=== PATIENT | female | born 1960 | race Caucasian/White ===

== ENCOUNTER 2017-05-08 12:10 | Emergency (ER) | payer OTHER ==
[2017-05-08 12:15] VITALS: BP 144/87
[2017-05-08] MEDS ORDERED: METH4TAB2 PO (12:50)
--- NOTE | 2017-05-08 12:50 | PHYS DOC ---
Past History Past Medical History: Fibromyalgia Past Surgical History: Tubal ligation, Other Additional Smoking Information: "vapes" Alcohol Use: Rarely Drug Use: None Adult General Chief Complaint Chief Complaint: SHOULDER INJURY HPI HPI 56-year-old right-handed female patient with history of partial right rotator cuff tear states she tried to throw a stick while working in her yard yesterday and felt a tear in her right shoulder since then unable to raise her shoulder. Patient states she has had limited range of abduction of the right shoulder but able to move partially her shoulder with help of other had. Patient denies focal neuro deficit and other injuries. Patient states she is allergic to all of pain medication except for Alive and doesn't want pain medication and only wants to know what is wrong with her shoulder. Review of Systems Review of Systems Constitutional: Denies fever or chills [] Eyes: Denies change in visual acuity, redness, or eye pain [] HENT: Denies nasal congestion or sore throat [] Respiratory: Denies cough or shortness of breath [] Cardiovascular: No additional information not addressed in HPI [] GI: Denies abdominal pain, nausea, vomiting, bloody stools or diarrhea [] : Denies dysuria or hematuria [] Musculoskeletal: Denies back pain, reports shoulder pain] Integument: Denies rash or skin lesions [] Neurologic: Denies headache, focal weakness or sensory changes [] Endocrine: Denies polyuria or polydipsia [] All other systems were reviewed and found to be within normal limits, except as documented in this note. Current Medications Current Medications Current Medications Medications (Trade) Dose Ordered Sig/[facility] Start Time Stop Time Status Last Admin Dose Admin Fentanyl Citrate (Fentanyl 2ml Vial) 50 mcg 1X ONCE 05/08/17 12:30 05/08/17 12:35 DC Allergies Allergies Allergies Coded Allergies Type Severity Reaction Last Updated Verified hydrocodone Allergy Intermediate HALLUCINATIONS 05/08/17 Yes Uncoded Allergies Type Severity Reaction Last Updated Verified all pain medications except aleve Allergy Unknown 05/08/17 Physical Exam Physical Exam Constitutional: Well developed, well nourished, mild distress, non-toxic appearance. [] HENT: Normocephalic, atraumatic, bilateral external ears normal, oropharynx moist, no oral exudates, nose normal. [] Eyes: PERRLA, EOMI, conjunctiva normal, no discharge. [] Neck: Normal range of motion, no tenderness, supple, no stridor. [] Cardiovascular:Heart rate regular rhythm, no murmur [] Lungs & Thorax: Bilateral breath sounds clear to auscultation []Abdomen: Bowel sounds normal, soft, no tenderness, no masses, no pulsatile masses. [] Skin: Warm, dry, no erythema, no rash. [] Back: No tenderness, no CVA tenderness. [] Extremities: Right shoulder reveals deformity, holding right shoulder in flexion position with limited abduction, no neurovascular deficit Neurologic: Alert and oriented X 3, normal motor function, normal sensory function, no focal deficits noted. [] Psychologic: Affect normal, judgement normal, mood normal. [] Current Patient Data Vital Signs Vital Signs Date Time Temp Pulse Resp B/P (MAP) Pulse Ox O2 Delivery O2 Flow Rate FiO2 05/08/17 12:15 98.0 86 18 97 Room Air EKG EKG [] Radiology/Procedures Radiology/Procedures [] Course & Med Decision Making Course & Med Decision Making Pertinent Labs and Imaging studies reviewed. (See chart for details) [] Dragon Disclaimer Dragon Disclaimer This electronic medical record was generated, in whole or in part, using a voice recognition dictation system. Departure Departure: Impression: Primary Impression: Injury of right rotator cuff Disposition: HOME, SELF-CARE (At 1248) Condition: IMPROVED Referrals: LAURA BRADLEY DO (PCP) Follow-up with your orthopedic physician in 1-2 days for more evaluation of shoulder including possible MRI of shoulder Patient Instructions: Rotator Cuff Injury Additional Instructions: Use shoulder sling and apply ice to right shoulder Scripts Methylprednisolone (MEDROL) 4 Mg Tab.ds.pk 1 PKG PO UD, #1 PKG Prov: JEET GOMEZ MD 05/08/17 JEET GOMEZ MD May 08, 2017 12:50
== END 2017-05-08 13:00 | disposition home or self-care (01) ==
LOC: ER 12:10
DX: S46.001A Unspecified injury of muscle(s) and tendon(s) of the rotator cuff of right shoulder, initial encounter (principal); M79.7 Fibromyalgia; Z88.5 Allergy status to narcotic agent; X50.9XXA Other and unspecified overexertion or strenuous movements or postures, initial encounter; Y93.89 Activity, other specified; Y99.8 Other external cause status; Y92.096 Garden or yard of other non-institutional residence as the place of occurrence of the external cause
CPT/HCPCS: 96372; 99283; J3010